=== PATIENT | male | born 1960 | race Caucasian/White ===

== ENCOUNTER 2017-03-24 20:19 | Emergency (ER) | payer OTHER ==
[~2017-03-24] VITALS: Ht 190.5 cm; Wt 147.8 kg
[~2017-03-24 20:19] MED LIST: AMLODIPINE5 MG PO; ASPIRIN 8181 MG PO; BACTRIM DS1 TAB OR; BP MED; CEPHALEXIN500 MG OR; CHOLESTEROL MED; CLONIDINE0.2 MG OR; FLEXERIL OR; FLEXERIL PO; HYDROCHLOROT25 MG PO; LIPITOR20 MG PO; LISINOPRIL20 M1 PO; LORTAB 5 OR; LORTAB 7.5 OR; NAPROSYN500 MG PO; NORCO1 TA1 PO; PANTOPRAZOLE SO40 MG PO; POOR HISTORIAN; PRAVACHOL40 MG OR; PREDNISONE10 MG PO; RANITIDINE150 MG PO; TAMSULOSIN0.4 MG PO; ULTRAM50 MG OR; VENTOLIN HFA IN
[2017-03-24] MEDS ORDERED: PERCOCET 5/325M1 TAB PO (21:29)
[2017-03-24 21:42] VITALS: BP 161/91
== END 2017-03-24 21:55 | disposition home or self-care (01) | DRG 605 ==
LOC: ED 20:19
DX: S00.93XA Contusion of unspecified part of head, initial encounter (principal); S00.81XA Abrasion of other part of head, initial encounter; S50.812A Abrasion of left forearm, initial encounter; V48.5XXA Car driver injured in noncollision transport accident in traffic accident, initial encounter; W22.10XA Striking against or struck by unspecified automobile airbag, initial encounter; Y92.414 Local residential or business street as the place of occurrence of the external cause